=== PATIENT | male | born 1990 | race Caucasian/White ===

== ENCOUNTER 2018-03-23 12:03 | Emergency (ER) | payer BC ==
[~2018-03-23] VITALS: Ht 177.8 cm; Wt 75.0 kg
[2018-03-23 12:06] VITALS: BP 121/86
[2018-03-23] MEDS ORDERED: ZYRTEC 10MG10 MG PO (12:15)
[2018-03-23] MEDS ORDERED: PROAIR HFA0.09 MG/AC IH (12:15)
[2018-03-23 13:19] VITALS: PULSE 76; TEMP 97.1
== END 2018-03-23 13:20 | disposition home or self-care (01) ==
LOC: COL.ER 12:03
DX: S90.32XA Contusion of left foot, initial encounter (principal); J45.909 Unspecified asthma, uncomplicated; Z87.891 Personal history of nicotine dependence; W20.8XXA Other cause of strike by thrown, projected or falling object, initial encounter; Y92.009 Unspecified place in unspecified non-institutional (private) residence as the place of occurrence of the external cause

== ENCOUNTER → 2020-05-10 | Outpatient (CLI) | payer SELFPAY ==
[~2020-05-10] MED LIST: PROAIR HFA0.09 MG/AC IH; ZYRTEC 10MG10 MG PO
== END ==
LOC: ZCOL.LAB 19:16
DX: B34.9 Viral infection, unspecified (principal); Z20.828 Contact with and (suspected) exposure to other viral communicable diseases

== ENCOUNTER → 2020-06-24 | Outpatient (CLI) | payer SELFPAY | LOC: ZCOL.LAB 16:46 | DX: B34.9 Viral infection, unspecified (principal); Z20.828 Contact with and (suspected) exposure to other viral communicable diseases ==